=== PATIENT | male | born 1990 | race Hispanic/Latino ===

== ENCOUNTER 2017-08-21 08:37 | Emergency (ER) | payer SELFPAY ==
[~2017-08-21] VITALS: Ht 172.7 cm; Wt 88.3 kg
[~2017-08-21 08:37] MED LIST: DOXYCYCLINE HY100 MG PO; IBUPROFEN600 MG PO
[2017-08-21 08:44] VITALS: BP 151/72
[2017-08-21] MEDS ORDERED: PREDNISONE5 M1 PO (09:40)
[2017-08-21] MEDS ORDERED: MOTRIN600 MG PO (09:40)
[2017-08-21] MEDS ORDERED: FLEXERIL5 MG PO (09:40)
== END 2017-08-21 10:11 | disposition home or self-care (01) ==
LOC: EME 08:37
DX: M54.12 Radiculopathy, cervical region (principal); S86.912A Strain of unspecified muscle(s) and tendon(s) at lower leg level, left leg, initial encounter; X50.9XXA Other and unspecified overexertion or strenuous movements or postures, initial encounter; Y93.02 Activity, running; F12.90 Cannabis use, unspecified, uncomplicated; F17.200 Nicotine dependence, unspecified, uncomplicated; Z71.6 Tobacco abuse counseling
CPT/HCPCS: 99281; 99283